=== PATIENT | male | born 1955 | race Caucasian/White ===

== ENCOUNTER 2018-04-27 07:10 | Emergency (ER) | payer OTHER ==
[~2018-04-27] VITALS: Ht 172.7 cm; Wt 72.6 kg
[2018-04-27] MEDS ORDERED: FLEXERIL PO (08:29)
[2018-04-27] MEDS ORDERED: IBUPROFEN 400400 M2 PO (08:29)
[2018-04-27 09:50] VITALS: BP 134/76
== END 2018-04-27 09:45 | disposition home or self-care (01) ==
LOC: ER 07:10
DX: M54.2 Cervicalgia (principal); I10 Essential (primary) hypertension; Z88.0 Allergy status to penicillin; V89.2XXA Person injured in unspecified motor-vehicle accident, traffic, initial encounter; Y92.89 Other specified places as the place of occurrence of the external cause; Y93.89 Activity, other specified; Y99.8 Other external cause status